=== PATIENT | female | born 1985 | race Hispanic/Latino ===

== ENCOUNTER 2017-11-08 09:09 | Emergency (ER) | payer OTHER ==
[2017-11-08 09:18] VITALS: BP 144/97; PULSE 87; RESP 16; TEMP 98; O2SAT 100
[2017-11-08 09:19] VITALS: BMI 22.1
--- NOTE | 2017-11-08 10:10 | ED PDOC ---
HPI: General Adult Time Seen by Provider: 11/08/17 09:30 Chief Complaint (Nursing): Abnormal Skin Integrity Chief Complaint (Provider): Tenderness to left jaw and cheek History Per: Patient History/Exam Limitations: no limitations Onset/Duration Of Symptoms: Days (x4) Current Symptoms Are (Timing): Still Present Additional Complaint(s): Bere Barfield is a 32 year old female presenting to the ED for an evaluation of pain localized to the left side of her jaw and cheek occurring for 4 days prior to arrival. The patient reports falling asleep on a plane, returning from [place], and when waking up feeling pain to the left side of her jaw and cheek. She also reports an associated cold with cough, congestion, and headache. The patient denies fever, chills, sore throat, any changes in eating or drinking. Of note, the patient has had her MMR vaccination. PMD: TBD Past Medical History Reviewed: Historical Data, Nursing Documentation, Vital Signs Vital Signs: Last Vital Signs Temp 98.0 F 11/08/17 09:14 Pulse 87 11/08/17 09:14 Resp 16 11/08/17 09:14 BP 144/97 H 11/08/17 09:14 Pulse Ox 100 11/08/17 10:29 - Medical History PMH: No Chronic Diseases - Surgical History Surgical History: Appendectomy, Tonsillectomy - Family History Family History: States: No Known Family Hx - Social History Current smoker - smoking cessation education provided: No Ex-Smoker (has not smoked in the last 12 months): No Alcohol: Social Drugs: Denies - Home Medications Home Medications: Ambulatory Orders Medication Instructions Recorded Amoxicillin/Clavulanate [Augmentin 1 tab PO BID #14 tab 11/08/17 875 MG-125 MG] Ibuprofen [Motrin] 600 mg PO TID #20 tab 11/08/17 - Allergies Allergies/Adverse Reactions: Allergies Allergy/AdvReac Type Severity Reaction Status Date / Time No Known Allergies Allergy Verified 11/08/17 09:29 Review of Systems ROS Statement: Except As Marked, All Systems Reviewed And Found Negative Constitutional: Negative for: Fever, Chills, Other (no changes in eating or drinking) ENT: Positive for: Nose Congestion, Other (dry mouth). Negative for: Throat Pain Respiratory: Positive for: Cough Musculoskeletal: Positive for: Neck Pain (left sided associated with left cheek and left sided jaw pain ) Neurological: Positive for: Headache Physical Exam - Reviewed Nursing Documentation Reviewed: Yes Vital Signs Reviewed: Yes - Physical Exam Appears: Positive for: Non-toxic, No Acute Distress Head Exam: Positive for: ATRAUMATIC, NORMOCEPHALIC (lower jaw; swelling but no redness; mastoid is normal; no trismus when opening mouth; no drooling) Skin: Positive for: Normal Color, Warm, Dry. Negative for: Rash Eye Exam: Positive for: Normal appearance, EOMI ENT: Positive for: Normal ENT Inspection, Pharynx Is (normal), TM Is/Are ( normal bilaterally). Negative for: Pharyngeal Erythema, Tonsillar Swelling Neck: Positive for: Normal, Painless ROM, Supple Cardiovascular/Chest: Positive for: Regular Rate, Rhythm. Negative for: Edema, Murmur Respiratory: Positive for: Normal Breath Sounds. Negative for: Respiratory Distress Back: Positive for: Normal Inspection Extremity: Positive for: Normal ROM. Negative for: Deformity Lymphatic: Negative for: Adenopathy Neurologic/Psych: Positive for: Alert, Oriented (x3). Negative for: Motor/ Sensory Deficits - ECG O2 Sat by Pulse Oximetry: 100 (RA) Pulse Ox Interpretation: Normal Medical Decision Making Medical Decision Making: Time: 09:30 Impression: Parotitis viral vs bacterial Plan: * Motrin Tab 600 mg PO Discussed with patient to apply warm compress to the area and chew on sour lemon candies to decrease inflammation of parotid gland. Patient agreed to treatment plan. Scribe Attestation: Documented by Vicenta Ovalles, acting as a scribe for Maxine Dueñas MD. Provider Scribe Attestation: All medical record entries made by the Scribe were at my direction and personally dictated by me. I have reviewed the chart and agree that the record accurately reflects my personal performance of the history, physical exam, medical decision making, and the department course for this patient. I have also personally directed, reviewed, and agree with the discharge instructions and disposition. Disposition - Clinical Impression Clinical Impression: Acute parotitis - Patient ED Disposition Is Patient to be Admitted: No Doctor Will See Patient In The: Office Counseled Patient/Family Regarding: Studies Performed, Diagnosis, Need For Followup - Disposition Referrals: Oziel Lock MD [Staff Provider] - Disposition: Routine/Home Disposition Time: 10:50 Condition: GOOD Additional Instructions: Apply warm compresses to swollen area. Chew sour lemon candies throughout the day. Take your medications as instructed. Follow up with your PCP in 2-3 days. Prescriptions: Amoxicillin/Clavulanate [Augmentin 875 MG-125 MG] 1 tab PO BID #14 tab Ibuprofen [Motrin] 600 mg PO TID #20 tab Instructions: Sialoadenitis (ED)
== END 2017-11-08 10:58 | disposition home or self-care (01) ==
LOC: EDBD 09:09 → H.ER 09:09
DX: K11.21 Acute sialoadenitis (principal); Z87.891 Personal history of nicotine dependence